=== PATIENT | female | born 1960 | race Caucasian/White ===

== ENCOUNTER 2019-04-15 20:20 | Emergency (ER) | payer SELFPAY ==
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
[2019-04-15] MEDS ORDERED: LOR5/325 PO (21:36)
[2019-04-15] MEDS ORDERED: IBUPROFEN 800 MG TAB PO ONE (21:40)
[2019-04-15] MEDS ORDERED: ACET/HYDROC 5/325MG TH ER ONLY 2 TAB/BOTTLE PO ONE (21:40)
[2019-04-15] MEDS ORDERED: DIPHTH/TETANUS/ACEL. PERTUSSIS IM ONLY ONE (21:40)
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
--- NOTE | 2019-04-15 23:05 | RADIOLOGY IMAGING REPORT ---
FACILITY: [facility] - [place] PATIENT NAME: Holli Ashton : 1960 MR: [id number] V: [id number] EXAM DATE: ORDERING PHYSICIAN: BERKLEY STEPHENS TECHNOLOGIST: Location: [facility] - [place] Patient: Holli Ashton : 1960 Visit/Account:[id number] Date of Sevice: 04/15/2019 Examination: FINGER RIGHT THUMB Comparison: None. History: fall, thumb pain Findings: Right thumb distal phalanx mildly comminuted, displaced, and angulated fracture with the fr acture potentially extending to the volar margin of the articular surface. Mild subluxation and asymmetric narrowing of the interphalangeal joint. There are osteophytes along t he joint space. No other acute osseous abnormality within the visualized hand. Moderate degenerative change involving the first metacarpophalangeal joint. Right thumb soft tissue spine. No radiopaque foreign body. IMPRESSION: 1. Right thumb distal phalanx mildly comminuted, displaced, and angulated fracture. The fracture pote ntially extends to the volar margin of the articular surface. 2. Mild subluxation and asymmetric narrowing of the interphalangeal joint. 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 Report Dictated By: Tutu Méndez MD at 04/15/2019 10:54 PM Report E-Signed By: Tutu Méndez MD at 04/15/2019 10:58 PM WSN:[id number]
[2019-04-15 23:08] VITALS: BP 126/77
== END 2019-04-15 23:45 | disposition home or self-care (01) ==
LOC: EDBD → ER 20:22
DX: S42.025A Nondisplaced fracture of shaft of left clavicle, initial encounter for closed fracture (principal); S01.01XA Laceration without foreign body of scalp, initial encounter; S62.521A Displaced fracture of distal phalanx of right thumb, initial encounter for closed fracture; V19.9XXA Pedal cyclist (driver) (passenger) injured in unspecified traffic accident, initial encounter
CPT/HCPCS: 71045; 73000; 73140; 90715; 96372; 99284; A4565; 90471